=== PATIENT | female | born 1990 | race Hispanic/Latino ===

== ENCOUNTER 2017-08-22 09:44 | Emergency (ER) | payer SELFPAY ==
[2017-08-22 10:15] LABS: #Eosinphils 0.1 thou/uL (0.0-0.7); #Lymphocytes 2.4 thou/uL (1.20-3.40); #Monocytes 0.8 thou/uL (0.11-0.59); #Neutrophils 7.6 thou/uL (1.40-6.50); %Basophils 0.4 % (0.0-1.0); %Eosinophils 0.8 % (0.0-10.0); %Neutrophils 69.7 % (42.0-75.0); Hemoglobin 15.2 g/dL (12.0-16.0); Mean Corpuscular HGB CONC 33.5 g/dL (32.0-36.0); Mean Corpuscular Hemoglobin 34.5 pg (27.0-31.0); Mean Platelet Volume 6.6 fL (7.4-10.4); Platelet Count 313 thou/uL (130-400); RBC Distribution Width 11.3 % (11.5-14.5); Red Blood Cell (RBC) Count 4.41 mill/uL (4.20-5.40); White Blood Cell (WBC) Count 10.9 thou/uL (4.8-10.8)
[2017-08-22 10:25] LABS: Bilirubin Negative (Negative); Blood, Urine Negative (Negative); Glucose, Urine (Dipstick) Negative (Negative); Leukocyte Negative (Negative); Nitrite Negative (Negative); Protein, Urine (Dipstick) Negative (Neg-Trace); Specific Gravity, Urine 1.025 (1.005-1.030); Urobilinogen 0.2 mg/dL (0.2-1.0)
[2017-08-22 10:26] LABS: Clarity CLEAR (Clear); Pregnancy Test - Urine (BHCG) Negative (Negative)
[2017-08-22 10:27] LABS: Pregu Control Background? CLEAR/WHITE (CLR/WHITE); Pregu Control Bar Appear? YES (CONTROL BAR); Specific Gravity 1.025 (1.002-1.036)
[2017-08-22] MEDS ORDERED: Ketorolac Tromethamine 30 MG/ML VIAL ONE (10:30)
[2017-08-22] MEDS ORDERED: Ondansetron HCl/PF 4 MG/2 ML Vial ONE (10:30)
[2017-08-22 11:05] LABS: ALT (SGPT) 15 U/L (8-55); AST (SGOT) 19 U/L (5-34); Albumin 4.6 g/dL (3.5-5.0); Alkaline Phosphatase 52 U/L (40-150); Anion Gap 17 mmol/L (10-20); BUN (Urea Nitrogen) 9 mg/dL (7.0-18.7); Calc. Creatinine Clearance 0 mL/min (70-130); Calcium 9.8 mg/dL (7.8-10.44); Carbon Dioxide 19 mmol/L (22-29); Chloride 106 mmol/L (98-107); Estimated GFR-MDRD Greater than 90; Glucose 75 mg/dL (70-105); Potassium 3.6 mmol/L (3.5-5.1); Protein, Total 7.6 g/dL (6.0-8.3); Sodium 138 mmol/L (136-145)
--- NOTE | 2017-08-22 11:31 | ULT ---
RIGHT UPPER QUADRANT ULTRASOUND: History: Right upper quadrant pain. FINDINGS: Multiple shadowing mobile stones are present within the gallbladder lumen. There is no gallbladder wa ll thickening or pericholecystic fluid. Common duct is 0.3 cm in diameter. Liver is unremarkable with out focal mass or intrahepatic biliary dilatation. No free fluid is apparent. IMPRESSION: Cholelithiasis. No evidence of acute biliary obstruction. POS: [facility]
[2017-08-22] MEDS ORDERED: Acetaminophen/Codeine 30-300mg Tablet ONE (11:43)
== END 2017-08-22 11:54 | disposition home or self-care (01) ==
LOC: ERS 09:44
DX: K80.20 Calculus of gallbladder without cholecystitis without obstruction (principal); F17.210 Nicotine dependence, cigarettes, uncomplicated
CPT/HCPCS: 36415; 76705; 80053; 81003; 81025; 85025; 96361; 96374; 96375; J1885; J2405

== ENCOUNTER 2017-08-26 17:02 | Emergency (ER) | payer SELFPAY ==
[2017-08-26 17:33] LABS: #Basophils 0.1 thou/uL (0.0-0.2); #Eosinphils 0.1 thou/uL (0.0-0.7); #Lymphocytes 2.2 thou/uL (1.20-3.40); #Monocytes 0.7 thou/uL (0.11-0.59); #Neutrophils 5.1 thou/uL (1.40-6.50); %Basophils 0.7 % (0.0-1.0); %Eosinophils 1.6 % (0.0-10.0); %Lymphocytes 26.9 % (21.0-51.0); %Monocytes 8.8 % (0.0-10.0); %Neutrophils 62.1 % (42.0-75.0); Hemoglobin 15.2 g/dL (12.0-16.0); Mean Corpuscular Hemoglobin 34.4 pg (27.0-31.0); Mean Platelet Volume 6.5 fL (7.4-10.4); Platelet Count 319 thou/uL (130-400); RBC Distribution Width 11.3 % (11.5-14.5); Red Blood Cell (RBC) Count 4.43 mill/uL (4.20-5.40); White Blood Cell (WBC) Count 8.3 thou/uL (4.8-10.8)
[2017-08-26 17:54] LABS: ALT (SGPT) 16 U/L (8-55); AST (SGOT) 16 U/L (5-34); Albumin 4.7 g/dL (3.5-5.0); Alkaline Phosphatase 48 U/L (40-150); Anion Gap 12 mmol/L (10-20); BUN (Urea Nitrogen) 8 mg/dL (7.0-18.7); Bilirubin, Total 1.1 mg/dL (0.2-1.2); Calc. Creatinine Clearance 0 mL/min (70-130); Calcium 9.7 mg/dL (7.8-10.44); Carbon Dioxide 23 mmol/L (22-29); Chloride 105 mmol/L (98-107); Estimated GFR-MDRD 78; Glucose 93 mg/dL (70-105); Potassium 3.9 mmol/L (3.5-5.1); Protein, Total 7.7 g/dL (6.0-8.3); Sodium 136 mmol/L (136-145)
[2017-08-26 19:01] LABS: Bilirubin Negative (Negative); Blood, Urine Negative (Negative); Clarity CLEAR (Clear); Glucose, Urine (Dipstick) Negative (Negative); Leukocyte Negative (Negative); Nitrite Negative (Negative); Protein, Urine (Dipstick) Negative (Neg-Trace); Specific Gravity, Urine 1.029 (1.002-1.036); pH, Urine 6.5 (5.0-9.0)
[2017-08-26 19:04] LABS: Pregnancy Test - Urine (BHCG) Negative (Negative)
[2017-08-26 19:05] LABS: Pregu Control Background? CLEAR/WHITE (CLR/WHITE); Pregu Control Bar Appear? YES (CONTROL BAR); Specific Gravity 1.029 (1.002-1.036)
[2017-08-26] MEDS ORDERED: Morphine 4 MG/ML Carpuject ONE (20:26)
[2017-08-26] MEDS ORDERED: Ondansetron HCl/PF 4 MG/2 ML Vial ONE (20:26)
== END 2017-08-26 20:55 | disposition home or self-care (01) ==
LOC: ERS 17:02
DX: R10.11 Right upper quadrant pain (principal); F17.210 Nicotine dependence, cigarettes, uncomplicated
CPT/HCPCS: 36415; 80053; 81003; 81025; 83690; 85025; 96374; 96375; 99406; J2270; J2405

== ENCOUNTER 2017-11-25 10:04 | Outpatient (CLI) | payer OTHER ==
[2017-11-25 11:03] LABS: #Basophils 0.1 thou/uL (0.0-0.2); #Eosinphils 0.1 thou/uL (0.0-0.7); #Lymphocytes 2.3 thou/uL (1.20-3.40); #Monocytes 0.7 thou/uL (0.11-0.59); #Neutrophils 6.7 thou/uL (1.40-6.50); %Basophils 0.8 % (0.0-1.0); %Eosinophils 0.9 % (0.0-10.0); %Lymphocytes 23.4 % (21.0-51.0); %Monocytes 6.9 % (0.0-10.0); Mean Corpuscular HGB CONC 33.5 g/dL (32.0-36.0); Mean Corpuscular Hemoglobin 34.5 pg (27.0-31.0); Mean Platelet Volume 6.7 fL (7.4-10.4); Platelet Count 359 thou/uL (130-400); RBC Distribution Width 11.3 % (11.5-14.5); Red Blood Cell (RBC) Count 4.34 mill/uL (4.20-5.40); White Blood Cell (WBC) Count 9.8 thou/uL (4.8-10.8)
[2017-11-25 11:23] LABS: BHCG - Serum Negative (NEGATIVE); Pregs Control Background? CLEAR/WHITE (CLR/WHITE); Pregs Control Bar Appear? YES (CONTROL BAR)
[2017-11-25 11:24] LABS: ALT (SGPT) 14 U/L (8-55); AST (SGOT) 15 U/L (5-34); Albumin 4.8 g/dL (3.5-5.0); Alkaline Phosphatase 54 U/L (40-150); Anion Gap 12 mmol/L (10-20); BUN (Urea Nitrogen) 6 mg/dL (7.0-18.7); Bilirubin, Total 1.3 mg/dL (0.2-1.2); Calc. Creatinine Clearance 0 mL/min (70-130); Carbon Dioxide 28 mmol/L (22-29); Chloride 104 mmol/L (98-107); Estimated GFR-MDRD 90; Globulin 2.8 g/dL (2.4-3.5); Glucose 90 mg/dL (70-105); Potassium 4.5 mmol/L (3.5-5.1); Protein, Total 7.6 g/dL (6.0-8.3); Sodium 139 mmol/L (136-145)
== END 2017-11-25 10:05 | disposition home or self-care (01) ==
LOC: LABBT 10:04
PROVIDERS: ATTEND Specialist
DX: Z01.812 Encounter for preprocedural laboratory examination (principal); K80.20 Calculus of gallbladder without cholecystitis without obstruction
CPT/HCPCS: 80053; 84703; 85025

== ENCOUNTER 2017-11-28 09:31 | Day surgery (SDC) | payer OTHER ==
[2017-11-25 10:54] VITALS: BMI 28.1
--- NOTE | 2017-11-25 15:19 | ADD-HP ---
DATE OF SERVICE: 10/09/2017 Isadora Oro presented 10/09/2017, dictation #[id number], for laparoscopic cholecystectomy. She has acqu ired financial ability to proceed with laparoscopic cholecystectomy. Preoperative laboratories will be obtained. The patient understands the risks and benefits of procedure and consents. We will plan this as an outpatient. PHYSICAL EXAMINATION: LUNGS: Clear to auscultation. CARDIAC: Regular rate and rhythm without murmur, rub, or gallop. ABDOMEN: Soft, nontender. EXTREMITIES: Unremarkable. ASSESSMENT: Symptomatic cholelithiasis. Please see prior history and physical for past history. PLAN: Laparoscopic cholecystectomy. Cass has been called into her pharmacy. Scopolamine patch wi ll be placed the night before.
--- NOTE | 2017-11-25 15:22 | HP ---
HISTORY OF PRESENT ILLNESS: A 27-year-old female presents with symptomatic cholelithiasis. She was referred by JUAN. She is having intermittent pain, epigastric pain continuous. Ultrasound in [facility] on 09/12/2017 reveals gallstones, normal bile duct caliber. I do not have c opies of any labs. ALLERGIES: None. TOBACCO: 1/2 pack per day. ALCOHOL: Occasionally. PAST MEDICAL HISTORY: Noncontributory. PAST SURGICAL HISTORY: Noncontributory. 0, para 0. REVIEW OF SYSTEMS: Ten-point noncontributory. PHYSICAL EXAMINATION: VITAL SIGNS: 145 pounds, 60 inches, 114/66, 80, 97.5 degrees. HEAD, EYES, EARS, NOSE, AND THROAT: Unremarkable. LUNGS: Clear to auscultation. CARDIAC: Regular rate and rhythm without murmur or gallop. ABDOMEN: Soft. Tenderness in the epigastrium with guarding with epigastric and right upper quadrant . EXTREMITIES: Unremarkable. SKIN: Nonjaundiced. Sclerae are nonicteric. Neurologically intact. No lymphadenopathy in neck, gr oins, axilla. ASSESSMENT AND PLAN: Acute on chronic cholecystitis and cholelithiasis. Recommend laparoscopic vide o cholecystectomy. Risk of infection, bleeding, visceral injury explained; she consents.
[2017-11-28] MEDS ORDERED: Ketorolac Tromethamine 30 MG/ML VIAL ONE (09:59)
[2017-11-28] MEDS ORDERED: Levofloxacin 500 mg/D5W 100 ml Premix Bag ONE (09:59)
[2017-11-28] MEDS ORDERED: Midazolam HCl 2 mg/2 ml Vial ONE ×2 (10:18→12:14)
[2017-11-28] MEDS ORDERED: Bupivacaine HCl 0.5%/Epinephrine 1:200,000/PF 30 ml Vial ONE (12:07)
[2017-11-28] MEDS ORDERED: Fentanyl 100 MCG/2 ML VIAL ONE ×2 (12:14→13:53)
[2017-11-28] MEDS ORDERED: Morphine 4 MG/ML VIAL ONE (13:21)
--- NOTE | 2017-11-28 13:33 | OP ---
PREOPERATIVE DIAGNOSES: Chronic cholecystitis, cholelithiasis. POSTOPERATIVE DIAGNOSES: Chronic cholecystitis, cholelithiasis. PROCEDURE: Laparoscopic video cholecystectomy. SURGEON: Olivier Thompson M.D. ANESTHESIA: General. Local 0.5% Marcaine with epinephrine 30 mL. DESCRIPTION OF PROCEDURE: The patient was taken to the operating room under general anesthesia. Abd omen was prepped with ChloraPrep, draped in routine fashion. Local anesthetic 0.5% Marcaine with epi nephrine infiltrated into the skin and subcutaneous tissue about each port site. Total volume used. Infraumbilical incision made. Pneumoperitoneum to 15 mmHg obtained with the Veress needle, replacin g it with a 5-port and laparoscope inserted. Remainder of the ports placed under laparoscopic visual ization. Right subxiphoid incision made and 11-port placed. Right subcostal incision made, midclavi cular anterior axillary lines and 5 ports placed. Liver appeared to be normal. Fundus grasped and r eflected cephalad. Infundibulum was grasped and reflected laterally. Cystic artery and duct dissect ed free for critical view, and cystic artery and duct doubly clipped proximally, divided, and gallbla dder dissected free from liver bed using cautery to obtain good hemostasis prior to division of final peritoneal attachments of the gallbladder. Irrigant and pneumoperitoneum evacuated. All instrument s removed and all skin incisions approximated with interrupted subdermal 4-0 Monocryl and DermaGlue a pplied.
[2017-11-28] MEDS ORDERED: PROPOFOL 200 MG/20 ML VIAL ONE (16:04)
[2017-11-28] MEDS ORDERED: Dexamethasone 20 MG/5 ML VIAL ONE (16:04)
[2017-11-28] MEDS ORDERED: Glycopyrrolate 0.2 MG/ML 5 ML SYRINGE ONE (16:04)
== END 2017-11-28 15:15 | disposition home or self-care (01) ==
LOC: SDC 09:31
PROVIDERS: ATTEND Specialist
PROC: 0FT44ZZ Resection of Gallbladder, Percutaneous Endoscopic Approach (ICD-10-PCS; principal; 2017-11-28)
DX: K80.10 Calculus of gallbladder with chronic cholecystitis without obstruction (principal)
CPT/HCPCS: 88304; J0131; J0670; J1100; J1885; J1956; J2250; J2270; J2704; J3010

== ENCOUNTER 2018-01-04 16:43 | Emergency (ER) | payer OTHER, SELFPAY ==
[2018-01-04 17:06] LABS: #Basophils 0.1 thou/uL (0.0-0.2); #Eosinphils 0.1 thou/uL (0.0-0.7); #Lymphocytes 2.8 thou/uL (1.20-3.40); #Monocytes 0.7 thou/uL (0.11-0.59); #Neutrophils 7.5 thou/uL (1.40-6.50); %Basophils 0.5 % (0.0-1.0); %Eosinophils 1.2 % (0.0-10.0); %Lymphocytes 25.3 % (21.0-51.0); %Neutrophils 67.1 % (42.0-75.0); Hemoglobin 14.6 g/dL (12.0-16.0); Mean Corpuscular HGB CONC 34.4 g/dL (32.0-36.0); Mean Corpuscular Hemoglobin 34.5 pg (27.0-31.0); Mean Platelet Volume 6.3 fL (7.4-10.4); Platelet Count 275 thou/uL (130-400); RBC Distribution Width 11.8 % (11.5-14.5); Red Blood Cell (RBC) Count 4.24 mill/uL (4.20-5.40); White Blood Cell (WBC) Count 11.2 thou/uL (4.8-10.8)
[2018-01-04 17:13] LABS: Bilirubin Small (Negative); Blood, Urine Small (Negative); Clarity CLOUDY (Clear); Glucose, Urine (Dipstick) Negative (Negative); Leukocyte Moderate (Negative); Nitrite Negative (Negative); Protein, Urine (Dipstick) Trace mg/dL (Neg-Trace); Specific Gravity, Urine 1.029 (1.002-1.036); Urobilinogen 0.2 mg/dL (0.2-1.0); pH, Urine 5.5 (5.0-9.0)
[2018-01-04 17:14] LABS: Bacteria/HPF Rare-Few HPF (None Seen); Pathc Cast-AUWi Flag 1.59 (0-2.49); Squamous Epithelial 0-3 HPF (0-3); WBC/HPF 21-50 HPF (0-3)
[2018-01-04 17:24] LABS: Crystals/HPF 1+ CA OXALATE HPF (Negative); Hyaline Casts/LPF 0-3 HYALINE CAST LPF (0-3 Hyaline)
[2018-01-04 17:28] LABS: ALT (SGPT) 13 U/L (8-55); AST (SGOT) 17 U/L (5-34); Albumin 4.5 g/dL (3.5-5.0); Alkaline Phosphatase 47 U/L (40-150); Anion Gap 11 mmol/L (10-20); BUN (Urea Nitrogen) 6 mg/dL (7.0-18.7); Bilirubin, Total 1.7 mg/dL (0.2-1.2); Calc. Creatinine Clearance 0 mL/min (70-130); Calcium 9.8 mg/dL (7.8-10.44); Carbon Dioxide 23 mmol/L (22-29); Chloride 106 mmol/L (98-107); Estimated GFR-MDRD 85; Globulin 2.8 g/dL (2.4-3.5); Glucose 98 mg/dL (70-105); Potassium 3.6 mmol/L (3.5-5.1); Protein, Total 7.3 g/dL (6.0-8.3); Sodium 136 mmol/L (136-145)
== END 2018-01-04 18:32 | disposition home or self-care (01) ==
LOC: ERS 16:43
DX: N30.90 Cystitis, unspecified without hematuria (principal); F17.210 Nicotine dependence, cigarettes, uncomplicated
CPT/HCPCS: 36415; 80053; 81003; 81015; 85025; 99284

== ENCOUNTER 2018-01-06 08:30 | Emergency (ER) | payer OTHER, SELFPAY ==
[2018-01-06 09:01] LABS: #Eosinphils 0.1 thou/uL (0.0-0.7); #Monocytes 0.5 thou/uL (0.11-0.59); #Neutrophils 3.8 thou/uL (1.40-6.50); %Basophils 0.3 % (0.0-1.0); %Eosinophils 1.6 % (0.0-10.0); %Lymphocytes 30.6 % (21.0-51.0); %Monocytes 8.3 % (0.0-10.0); %Neutrophils 59.2 % (42.0-75.0); Hemoglobin 14.8 g/dL (12.0-16.0); Mean Corpuscular HGB CONC 34.1 g/dL (32.0-36.0); Mean Corpuscular Hemoglobin 34.5 pg (27.0-31.0); Mean Platelet Volume 6.4 fL (7.4-10.4); Platelet Count 275 thou/uL (130-400); RBC Distribution Width 11.7 % (11.5-14.5); Red Blood Cell (RBC) Count 4.28 mill/uL (4.20-5.40); White Blood Cell (WBC) Count 6.4 thou/uL (4.8-10.8)
[2018-01-06 09:08] LABS: Clarity CLEAR (Clear)
[2018-01-06 09:11] LABS: Hyaline Casts/LPF 0-3 HYALINE CAST LPF (0-3 Hyaline); Pathc Cast-AUWi Flag 0.29 (0-2.49); Squamous Epithelial 0-3 HPF (0-3)
[2018-01-06 09:21] LABS: Specific Gravity, Urine 1.004 (1.002-1.036)
[2018-01-06 09:22] LABS: Leukocyte Negative (Negative); Nitrite Unable to Interpret (Negative); pH, Urine 6.1 (5.0-9.0)
[2018-01-06 09:23] LABS: Blood, Urine Trace (Negative)
[2018-01-06 09:24] LABS: Bilirubin Unable to Interpret (Negative); Urobilinogen UNABLE TO INTERPRET mg/dL (0.2-1.0)
[2018-01-06 09:25] LABS: Protein, Urine (Dipstick) Unable to Interpret mg/dL (Neg-Trace)
[2018-01-06 09:29] LABS: Pregnancy Test - Urine (BHCG) Negative (Negative); Pregu Control Bar Appear? YES (CONTROL BAR); Specific Gravity 1.004 (1.002-1.036)
[2018-01-06 09:29] LABS: ALT (SGPT) 16 U/L (8-55); AST (SGOT) 17 U/L (5-34); Albumin 4.7 g/dL (3.5-5.0); Alkaline Phosphatase 49 U/L (40-150); Anion Gap 11 mmol/L (10-20); BUN (Urea Nitrogen) 6 mg/dL (7.0-18.7); Bilirubin, Total 1.1 mg/dL (0.2-1.2); Calc. Creatinine Clearance 0 mL/min (70-130); Calcium 9.7 mg/dL (7.8-10.44); Carbon Dioxide 24 mmol/L (22-29); Chloride 105 mmol/L (98-107); Estimated GFR-MDRD 89; Glucose 94 mg/dL (70-105); Potassium 3.7 mmol/L (3.5-5.1); Protein, Total 7.7 g/dL (6.0-8.3); Sodium 136 mmol/L (136-145)
[2018-01-06 09:33] LABS: Pregu Control Background? CLEAR/WHITE (CLR/WHITE)
[2018-01-06] MEDS ORDERED: Mag-Al 1200 mg/1200 mg/30 ML UDCUP ONE (09:46)
[2018-01-06] MEDS ORDERED: Lidocaine Viscous Sol 2% 15 ml UD Cup ONE (09:47)
[2018-01-06 09:49] LABS: Glucose, Urine (Dipstick) Negative (Negative); Renal Epithelial 0-3 HPF (0-3)
[2018-01-06 09:50] LABS: Bacteria/HPF Rare-Few HPF (None Seen); RBC/HPF 0-3 HPF (0-3); Yeast-All Forms None Seen HPF (None Seen)
[2018-01-06 09:51] LABS: WBC/HPF 0-3 HPF (0-3)
[2018-01-06 10:30] LABS: Crystals/HPF 1+ SODIUM URATE HPF (Negative)
== END 2018-01-06 10:20 | disposition home or self-care (01) ==
LOC: ERS 08:30
DX: R10.13 Epigastric pain (principal); R11.2 Nausea with vomiting, unspecified; N39.0 Urinary tract infection, site not specified; F17.210 Nicotine dependence, cigarettes, uncomplicated; K80.80 Other cholelithiasis without obstruction
CPT/HCPCS: 36415; 80053; 81003; 81015; 81025; 83690; 85025; 99284

== ENCOUNTER 2018-08-31 14:09 | Outpatient (CLI) | payer OTHER ==
--- NOTE | 2018-08-31 17:28 | ULT ---
ULTRASOUND OBSTETRICAL COMPLETE: DATE: 08-31-18 HISTORY: Z34.82, encounter for supervision of other normal , 2nd trimester, in 27-year-old female. FINDINGS: number: Luong lie: Vertex Maternal cervix: Poorly visualized Placenta: Posterior. No previa. Tip of placenta is 3.5 cm from the expected location of the internal cervical os. Amniotic fluid volume: LINSEY: 9 cm heart rate: 147 bpm The following anatomy is visualized, with no evidence of anomalies: Head, cerebellum, cisterna magna, lateral ventricles, four chamber heart, stomach, kidneys, bladder, spine, upper extremities, lower extremities, and three vessel cord. The cord insertion, and the nose and lips, are not well visualized. biometry: Head circumference (HC): 16.9 cm 19 w 4 d Biparietal diameter (BPD): 4.4 cm 19 w 2 d Abdominal circumference (AC): 14.3 cm 19 w 4 d Femur length (FL): 2.1 cm 19 w 4 d Average ultrasound age (AUA): 19 w 4 d Estimated date of delivery (BRADLEY): 01/21/2019 Last menstrual period (LMP): 04/13/2018 Gestational age by LMP: 20 w 0 d Estimated weight (EFW): 299 g +/- 44g (0 lb. 11 oz, +/- 2 oz) IMPRESSION: 1. Live 2nd trimester intrauterine gestation. 2. Estimated gestational age of 19 weeks, 4 days. 3. Cephalic lie. 4. Borderline oligohydramnios. DEVIN Guzman POS: [facility]
== END 2018-08-31 14:10 | disposition home or self-care (01) ==
LOC: ULT 14:09
PROVIDERS: ATTEND Nurse Practitioner
DX: Z34.82 Encounter for supervision of other normal pregnancy, second trimester (principal); Z3A.19 19 weeks gestation of pregnancy; O41.02X0 Oligohydramnios, second trimester, not applicable or unspecified
CPT/HCPCS: 76805

== ENCOUNTER 2018-11-11 13:45 | Outpatient (CLI) | payer OTHER ==
--- NOTE | 2018-11-11 14:51 | ULT ---
EXAM: US OB Complete STANDARD PROVIDED CLINICAL HISTORY: Intrauterine gestation. Evaluate growth and amniotic fluid index. COMPARISON: 08/31/2018. FINDINGS: There is a single intrauterine gestation in cephalic presentation. Cardiac Doppler demonstrates heart tones with a heart rate of 144 bpm. The placenta is located posteriorly without evidence of placenta previa. There is a normal amount of amniotic fluid with an amniotic fluid index measurin g 10.48 cm. The cervix is mostly obscured due to shadowing from the head. biometry measurements: Biparietal diameter: 7.69 cm, 30 weeks 6 days Head circumference: 27.96 cm, 30 weeks 5 days Abdominal circumference 25.75 cm, 30 weeks Femur length 5.56 cm, 29 weeks 2 days The estimated gestational age by ultrasound is 30 weeks and 2 days with an BRADLEY on 01/18/2019. Gestatio nal age by the last menstrual period is 30 weeks and 2 days. The estimated weight by ultrasound is 1465 g (3 pounds, 4 ounces). This represents 24th percentile for weight. The anatomical structures were not completely evaluated on this examination. There is suggestio n of a 4 chambered heart. The stomach has a normal appearance. A three-vessel cord is visualized. The remainder of the anatomical structures are not well imaged on this exam. However, no definite anomalies are appreciated on provided images. IMPRESSION: 1. Single intrauterine gestation in cephalic presentation with heart tones documented. The maribell mated gestational age by ultrasound is 30 weeks and 2 days with BRADLEY on 01/18/2019. 2. Estimated weight is 1465 g (3 pounds, 4 ounces). 3. Amniotic fluid index measures 10.48 cm.
== END 2018-11-11 13:46 | disposition home or self-care (01) ==
LOC: BICULT 13:45
PROVIDERS: ATTEND Obstetrics & Gynecology
DX: Z34.83 Encounter for supervision of other normal pregnancy, third trimester (principal); Z3A.30 30 weeks gestation of pregnancy
CPT/HCPCS: 76805

== ENCOUNTER 2018-12-13 21:26 | Observation (INO) | payer OTHER ==
[2018-12-13] MEDS ORDERED: Morphine 4 MG/ML VIAL ONE (21:45)
[2018-12-13 21:53] VITALS: BMI 33.4
[2018-12-13] MEDS ORDERED: Lactated Ringer's 1,000 ML IV SCH (22:00)
[2018-12-13] MEDS ORDERED: Butorphanol Tartrate 1 MG/ML VIAL ONE (22:08)
--- NOTE | 2018-12-13 22:26 | PDOC.LDHP ---
Labor and Delivery H&P Chief complaint: abdominal pain HPI: 28 y/o at 34w3d, patient of Dr. Yasmeen Escobar, presents with right sided flank/abdominal pain. Pain started abruptly and is severe. Denies N/V, changes in bowel habits. Denies VB, LOF, or decreased FM. ROS neg for HEENT, CV, pulm, GI, , neuro, psych, skin, musculoskeletal, or constitutional symptoms other than mentioned above. OB History Details: 2 prior term SVDs Current complications: none Current medications: pre- vitamins Previous surgical history: cholecystectomy Allergies/Adverse Reactions: Allergies Allergy/AdvReac Type Severity Reaction Status Date / Time No Known Allergies Allergy Verified 12/13/18 21:50 Social history: none - Physical Exam Vital signs reviewed and normal: yes General: other (Appears uncomfortable) Lungs: nonlabored breathing Abdomen: gravid Extremeties: no edema FHT: category 1 (140s, mod variability, + accels, no decels) [place] contractions every: none - Vaginal Exam cm dilated: 1 Effacement: 0% Station: -3 - OB Labs Blood type: A RH: positive - Assessment 28 y/o at 34w3d with clinical picture consistent with kidney stone. US pending. status reassuring with reactive NST. - Plan Plan: observation in L&D -: Given Morphine 4mg IM with no improvement. IV started and labs pending. Will place on obs for pain control overnight. Dr. Moreno notified.
[2018-12-13 22:31] LABS: #Eosinphils 0.2 thou/uL (0.0-0.7); #Lymphocytes 2.3 thou/uL (1.20-3.40); #Monocytes 0.8 thou/uL (0.11-0.59); #Neutrophils 8.1 thou/uL (1.40-6.50); %Basophils 0.2 % (0.0-1.0); %Eosinophils 1.5 % (0.0-10.0); %Monocytes 7.2 % (0.0-10.0); %Neutrophils 71.1 % (42.0-75.0); Hemoglobin 10.8 g/dL (12.0-16.0); Mean Corpuscular HGB CONC 32.8 g/dL (32.0-36.0); Mean Corpuscular Hemoglobin 30.1 pg (27.0-31.0); Mean Corpuscular Volume 91.8 fL (78.0-98.0); Mean Platelet Volume 6.5 fL (7.4-10.4); Platelet Count 341 thou/uL (130-400); RBC Distribution Width 12.1 % (11.5-14.5); Red Blood Cell (RBC) Count 3.59 mill/uL (4.20-5.40); White Blood Cell (WBC) Count 11.5 thou/uL (4.8-10.8)
[2018-12-13 22:32] LABS: Bilirubin Negative (Negative); Blood, Urine Small (Negative); Clarity CLOUDY (Clear); Glucose, Urine (Dipstick) Negative (Negative); Leukocyte Negative (Negative); Nitrite Negative (Negative); Protein, Urine (Dipstick) Negative (Neg-Trace); Urobilinogen 0.2 mg/dL (0.2-1.0)
[2018-12-13] MEDS: Morphine 4 MG/ML VIAL IM PRN (22:32)
[2018-12-13 22:35] LABS: Bacteria/HPF None Seen HPF (None Seen); Hyaline Casts/LPF 4-6 HYALINE CAST LPF (0-3 Hyaline); Pathc Cast-AUWi Flag 1.08 (0-2.49); Squamous Epithelial 0-3 HPF (0-3); WBC/HPF None Seen HPF (0-3)
[2018-12-13 22:37] LABS: Urine Culture Reflex No No
[2018-12-13] MEDS ORDERED: Acetaminophen 500 MG TAB PO PRN (22:41)
[2018-12-13] MEDS ORDERED: Ondansetron PF 4 MG/2 ML Vial IVP PRN (22:41)
[2018-12-13] MEDS ORDERED: Promethazine HCl 25 MG/ML VIAL IM PRN (22:41)
[2018-12-13 22:56] LABS: ALT (SGPT) 8 U/L (8-55); AST (SGOT) 12 U/L (5-34); Albumin 3.4 g/dL (3.5-5.0); Alkaline Phosphatase 109 U/L (40-150); Anion Gap 13 mmol/L (10-20); BUN (Urea Nitrogen) 4 mg/dL (7.0-18.7); Bilirubin, Total 0.6 mg/dL (0.2-1.2); Calc. Creatinine Clearance 165 mL/min (70-130); Calcium 9.1 mg/dL (7.8-10.44); Carbon Dioxide 23 mmol/L (22-29); Chloride 104 mmol/L (98-107); Estimated GFR-MDRD Greater than 90; Globulin 3.2 g/dL (2.4-3.5); Glucose 95 mg/dL (70-105); Potassium 3.7 mmol/L (3.5-5.1); Protein, Total 6.6 g/dL (6.0-8.3); Sodium 136 mmol/L (136-145)
[2018-12-13] MEDS: Butorphanol Tartrate 1 MG/ML VIAL SLOW IVP PRN (23:53)
--- NOTE | 2018-12-13 23:57 | ULT ---
Exam: Bilateral renal ultrasound HISTORY: Right-sided pain. COMPARISON: None FINDINGS: Right kidney: Normal cortical echotexture. No hydronephrosis. Right kidney measurements: 4.9 x 4.8 x 11.4 cm Left kidney: Normal cortical echotexture. No hydronephrosis Left kidney measurements 5.9 x 11.7 x 5.4 cm Urinary bladder: Questionable sediment in the dependent portion. Bilateral ureteral jets are apprecia timothy. IMPRESSION: 1. No hydronephrosis 2. Bilateral ureteral jets are appreciated 3. Possible sediment in the dependent portion of the urinary bladder. Correlate with urinalysis.
[2018-12-14] MEDS: Butorphanol Tartrate 1 MG/ML VIAL SLOW IVP PRN ×3 (02:55→07:47)
[2018-12-14] MEDS: Lactated Ringer's 1,000 ML IV SCH ×2 (02:55→08:23)
[2018-12-14] MEDS: Morphine 4 MG/ML VIAL IM PRN (05:15)
[2018-12-14] MEDS ORDERED: Butorphanol Tartrate 1 MG/ML VIAL ONE (07:43)
[2018-12-14] MEDS ORDERED: Tamsulosin HCl 0.4 MG CAP PO SCH (09:00)
[2018-12-14] MEDS ORDERED: Acetaminophen 1,000 MG in Premix Bag 1 BAG IVPB SCH (09:15)
[2018-12-14] MEDS ORDERED: Butorphanol Tartrate 1 MG/ML VIAL SLOW IVP SCH (09:30)
[2018-12-14 10:43] VITALS: BP 112/69; TEMP 99.1
== END 2018-12-14 14:09 | disposition home health service (06) ==
LOC: L&D/OP 21:26 → L&D 22:47
PROVIDERS: ADMIT Obstetrics & Gynecology; ATTEND Obstetrics & Gynecology
DX: O99.89 Other specified diseases and conditions complicating pregnancy, childbirth and the puerperium (principal); R10.9 Unspecified abdominal pain; O99.013 Anemia complicating pregnancy, third trimester; Z3A.34 34 weeks gestation of pregnancy
CPT/HCPCS: 36415; 76770; 80053; 81001; 85025; 96361; 96374; 96375; 96376; 99285; G0378; J0131; J0595; J2270; J2550

== ENCOUNTER 2019-01-02 00:26 | Day surgery (SDC) | payer OTHER ==
[2019-01-02 00:52] VITALS: BP 134/61; TEMP 97.4; BMI 34.7
--- NOTE | 2019-01-02 03:53 | PDOC.LDHP ---
Labor and Delivery H&P Allergies/Adverse Reactions: Allergies Allergy/AdvReac Type Severity Reaction Status Date / Time No Known Allergies Allergy Verified 01/02/19 00:46 - Plan -: PCP: Clement Escobar HPI: This is a 28 yo at 37.2 wks by LMP/1TUS presenting for contractions. She states they have been going on for about a day but got worse this afternoon. She states she is feeling them about every 5 mintues. She denies headache, chest pain, or shortness of breath. She affirms movement, denies bleeding/discharge. Denies BOCANEGRA, visual changes, SOB, or swelling. REVIEW OF SYSTEMS: Gen: no fever, chills, or sweats Neuro: no numbness/tingling, no weakness, denies headache Eyes: no visual changes ENT: no hearing changes, no sore throat, no runny nose Resp: no cough, no SOB, no wheeze Card: denies chest pain, no palpitations GI: no N/V/D, no abdominal pain : no dysuria, no hematuria MSK: no myalgias, no joint pain/stiffness Heme: no easy bruising/bleeding Skin: no rash, no erythema PHYSICAL EXAMINATION: General: NAD, alert and oriented x3 HEENT: PERRLA, EOMI, normal sclera, oropharynx without erythema or exudate Neck: Supple. Full ROM. Heart/Cardiovascular System: RRR, Cap refill < 3 seconds, no rub, no murmur Lungs/Respiratory System: clear to auscultation bilaterally. No increased work of breathing. Room air. Abdomen/Gastro-Intestinal System: no abdominal tenderness, normal bowel sounds, Gravid Extremities: Warm extremities. No cyanosis or edema. Neuro: No gross deficits appreciated. CN 2-12 grossly intact Psychiatry: Awake, Alert and cooperative with exam Skin: No lesions, rashes, or ulcers Musculoskeletal: Full ROM A/P: This is a 28 yo at 32.4 wks presenting for labor r/o # Term not in labor - No change after 2 hour labor re-check, /-3 - Labor Precautions discussed at length - Follow up in clinic with Dr. Escobar Addendum - Attending - Attending Attestation Date/Time: 01/04/19 0643 I personally evaluated the patient and discussed the management with Dr. Hi I agree with the History, Examination, Assessment and Plan documented above with any addition or exceptions noted below. vital signs: 134/61 92 20 97.4 heart tracing: baseline 130s with mod ltv, +15x15 acels, no decels-- reactive nst toco: irritability with out regular contractions. no evidence of labor. PT discharged home.
== END 2019-01-02 03:03 | disposition home or self-care (01) ==
LOC: L&D/OP 00:26
PROVIDERS: ATTEND Obstetrics & Gynecology
DX: O47.1 False labor at or after 37 completed weeks of gestation (principal); Z3A.37 37 weeks gestation of pregnancy
CPT/HCPCS: 99283

== ENCOUNTER 2019-01-15 01:47 | Inpatient (IN) | payer OTHER ==
[2019-01-15 02:18] VITALS: BMI 34.3
[2019-01-15] MEDS ORDERED: Fentanyl 4 mcg/Bup 0.1% Cadd 100 ML ONE (02:21)
[2019-01-15] MEDS ORDERED: Lidocaine 1.5%/Epinephrine 1:200,000 5 ML AMPUL IJ ONE (02:22)
[2019-01-15 02:39] LABS: Hemoglobin 11.3 g/dL (12.0-16.0); Mean Corpuscular HGB CONC 34.2 g/dL (32.0-36.0); Mean Corpuscular Hemoglobin 30.6 pg (27.0-31.0); Mean Corpuscular Volume 89.4 fL (78.0-98.0); Mean Platelet Volume 6.5 fL (7.4-10.4); Platelet Count 354 thou/uL (130-400); RBC Distribution Width 13.3 % (11.5-14.5); Red Blood Cell (RBC) Count 3.71 mill/uL (4.20-5.40); White Blood Cell (WBC) Count 11.5 thou/uL (4.8-10.8)
[2019-01-15] MEDS ORDERED: NS / Oxytocin 40 units/1000ml 1,000 ML ONE (02:43)
[2019-01-15] MEDS ORDERED: Butorphanol Tartrate 1 MG/ML VIAL SLOW IVP PRN (02:46)
[2019-01-15] MEDS ORDERED: Ondansetron PF 4 MG/2 ML Vial IVP PRN ×3 (02:46→06:33)
[2019-01-15] MEDS ORDERED: Promethazine HCl 25 MG/ML VIAL IM PRN ×2 (02:46→04:06)
[2019-01-15] MEDS ORDERED: Lidocaine 1% (PF) 30 ML VIAL SC PRN (03:00)
[2019-01-15] MEDS ORDERED: NS / Oxytocin 40 units/1000ml 1,000 ML IV SCH ×2 (03:00→06:45)
[2019-01-15] MEDS ORDERED: NS w/ Oxytocin 10 units 500 ML IV SCH (03:00)
[2019-01-15 03:20] LABS: HBSAg Index 0.28 S/CO (0-0.99); Hep B Surf Ag Non-Reactive S/CO (NonReactive)
[2019-01-15] MEDS ORDERED: Lidocaine 1% PF 5 ML VIAL ONE (03:34)
[2019-01-15 04:05] LABS: Syphilis Antibody Nonreactive (Nonreactive); Syphilis Antibody Index 0.05 S/CO (<1.00 Non-Reactive)
[2019-01-15] MEDS ORDERED: Naloxone HCl 0.4 mg/ml Vial IVP PRN ×2 (04:06)
[2019-01-15] MEDS ORDERED: Acetaminophen 325 MG TAB PO PRN (04:06)
[2019-01-15] MEDS ORDERED: diphenhydrAMINE 50 MG/ML VIAL IVP PRN (04:06)
[2019-01-15] MEDS ORDERED: ePHEDrine/0.9% NaCl/PF SYRINGE 50 mg/10 ml SLOW IVP PRN (04:06)
[2019-01-15] MEDS ORDERED: Lactated Ringer's 500 ML IV PRN (04:06)
[2019-01-15] MEDS ORDERED: Fentanyl 4 mcg/Bupivacaine 0.1% Cassette 100 ML EPIDURAL SCH (04:15)
[2019-01-15] MEDS ORDERED: Communication Order-Pharmacy FS SCH (04:15)
[2019-01-15] MEDS ORDERED: Adacel (T-DAP) 0.5 ML SYRINGE IM ONE (06:33)
[2019-01-15] MEDS ORDERED: Milk Of Magnesia 30 ML UDCUP PO PRN (06:33)
[2019-01-15] MEDS ORDERED: Lanolin Ointment 7 GM TUBE TOP PRN (06:33)
[2019-01-15] MEDS ORDERED: HYDROcodone/Acetaminophen 5/325 mg Tablet PO PRN (06:33)
[2019-01-15] MEDS ORDERED: Preparation H Ointment 28 GM TUBE PR PRN (06:33)
[2019-01-15] MEDS ORDERED: Benzocaine-Menthol 82.5 ML CAN TOP PRN (06:33)
[2019-01-15] MEDS ORDERED: Bisacodyl 10 MG SUPP PR PRN (06:33)
[2019-01-15] MEDS ORDERED: Fioricet 325/50/40 mg Tablet PO PRN (06:48)
[2019-01-15] MEDS: Ibuprofen 800 MG TAB PO SCH ×2 (06:50→21:27)
[2019-01-15] MEDS: NS w/ Oxytocin 10 units 500 ML IV SCH (10:16)
[2019-01-15] MEDS: Docusate Calcium (SURFAK) 240 MG CAP PO SCH ×2 (10:17→21:27)
[2019-01-15] MEDS: Ferrous Sulfate 325 MG TAB PO SCH ×2 (10:17→16:57)
[2019-01-15] MEDS: Prenatal Vitamin 1 TAB PO SCH (10:17)
--- NOTE | 2019-01-15 12:04 | OP ---
DATE OF PROCEDURE: 01/15/2019 PREOPERATIVE DIAGNOSES: 1. A 28-year-old G3, P2, at 39 weeks and 1 day with active labor. 2. GBS negative. 3. History of herpes simplex virus with initiation of prophylaxis at 30 weeks gestation with history of outbreaks and negative exam for lesions or symptoms. 4. Anemia of . POSTOPERATIVE DIAGNOSES: 1. A 28-year-old G3, P2, at 39 weeks and 1 day with active labor. 2. GBS negative. 3. History of herpes simplex virus with initiation of prophylaxis at 30 weeks gestation with history of outbreaks and negative exam for lesions or symptoms. 4. Anemia of . 5. Liveborn female with Apgars of 9 and 9 at 1 and 5 minutes respectively, weighing 7 pounds 4 ounces. PROCEDURE PERFORMED: Vaginal delivery. ANESTHESIA: Epidural. CLINICAL HISTORY: The patient is a 28-year-old female, G3, P2, who presented at 39 weeks and 1 day in active labor. She was checked by the nursing staff and was noted to be 6 cm, 80% effaced, -2 station, and uncomfortable. The patient was admitted and she requested an epidural for maternal analgesia. Once the epidural was placed and she was comfortable, an amniotomy was performed for clear fluid. The patient improved and continued to progress. She had a category 1 tracing and hour and a half later, she was complete and +2 station and ready to deliver. DESCRIPTION OF PROCEDURE: With good maternal effort, the patient was able to push and bring the vertex to and delivered the anterior shoulder followed by the posterior shoulder, followed by the remainder of the 's body was delivered. The infant cried spontaneously. The cord was doubly clamped and then cut by the father of the baby and placed on maternal abdomen for continued stimulation by the nursing staff. The baby cried vigorously. The placenta was then delivered spontaneously intact with a 3-vessel cord. The introitus, vagina, and cervix were checked for lacerations and noted to be intact. The uterus was massaged and noted to be below the umbilicus and firm. The patient tolerated the procedure well. There were no lacerations. She was able to recover on Labor and Delivery in satisfactory condition with her . Again, the was a liveborn female with Apgars of 9 and 9 at 1 and 5 minutes, weighing 7 pounds 4 ounces. Estimated blood loss was 25. 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 There were no other issues surrounding this delivery. All needle, sponge, lap, and instrument counts were correct x2 at the end of the procedure. Job ID: [id number]
[2019-01-15] MEDS: HYDROcodone/Acetaminophen 5/325 mg Tablet PO PRN (23:28)
[2019-01-16] MEDS: Ibuprofen 800 MG TAB PO SCH ×2 (05:43→14:15)
[2019-01-16] MEDS: NS w/ Oxytocin 10 units 500 ML IV SCH (06:31)
[2019-01-16] MEDS: Prenatal Vitamin 1 TAB PO SCH (08:44)
[2019-01-16] MEDS: Docusate Calcium (SURFAK) 240 MG CAP PO SCH (08:44)
[2019-01-16] MEDS: Ferrous Sulfate 325 MG TAB PO SCH ×2 (08:45→16:48)
[2019-01-16 09:02] VITALS: BP 110/66; TEMP 97.7
[2019-01-16] MEDS: HYDROcodone/Acetaminophen 5/325 mg Tablet PO PRN (14:14)
== END 2019-01-16 18:50 | disposition home or self-care (01) | DRG 806 ==
LOC: L&D/OP 01:47 → L&D 02:13 → 3SW 09:07
PROVIDERS: ADMIT Obstetrics & Gynecology; ATTEND Obstetrics & Gynecology
PROC: 10907ZC Drainage of Amniotic Fluid, Therapeutic from Products of Conception, Via Natural or Artificial Opening (ICD-10-PCS; principal; 2019-01-15)
PROC: 10E0XZZ Delivery of Products of Conception, External Approach (ICD-10-PCS; 2019-01-15)
DX: O99.02 Anemia complicating childbirth (principal); O98.52 Other viral diseases complicating childbirth; Z37.0 Single live birth; D64.9 Anemia, unspecified; Z3A.39 39 weeks gestation of pregnancy; B00.9 Herpesviral infection, unspecified
CPT/HCPCS: 36415; 51702; 85027; 86780; 86850; 86900; 86901; 87340; 90715; 99285; J2001; J3490

== ENCOUNTER 2019-08-13 17:23 | Emergency (ER) | payer MEDICAID, OTHER, SELFPAY ==
[2019-08-13 18:06] LABS: Bilirubin Negative (Negative); Blood, Urine Negative (Negative); Clarity Clear (Clear); Glucose, Urine (Dipstick) Normal (Negative); Leukocyte Negative Leu/uL (Negative); Nitrite Negative (Negative); Protein, Urine (Dipstick) 10 mg/dL (Neg-Trace); Urobilinogen Normal mg/dL (Less than 2)
[2019-08-13 18:15] LABS: #Basophils 0.1 thou/uL (0.0-0.2); #Eosinphils 0.1 thou/uL (0.0-0.7); #Lymphocytes 2.4 thou/uL (1.20-3.40); #Monocytes 0.7 thou/uL (0.11-0.59); #Neutrophils 8.5 thou/uL (1.40-6.50); %Basophils 0.6 % (0.0-1.0); %Eosinophils 0.5 % (0.0-10.0); %Lymphocytes 20.3 % (21.0-51.0); %Monocytes 6.2 % (0.0-10.0); %Neutrophils 72.4 % (42.0-75.0); Hemoglobin 13.2 g/dL (12.0-16.0); Mean Corpuscular HGB CONC 34.4 g/dL (32.0-36.0); Mean Corpuscular Hemoglobin 31.3 pg (27.0-31.0); Mean Corpuscular Volume 90.9 fL (78.0-98.0); Mean Platelet Volume 6.5 fL (7.4-10.4); Platelet Count 356 thou/uL (130-400); RBC Distribution Width 12.1 % (11.5-14.5); Red Blood Cell (RBC) Count 4.21 mill/uL (4.20-5.40); White Blood Cell (WBC) Count 11.7 thou/uL (4.8-10.8)
[2019-08-13 18:37] LABS: ALT (SGPT) 18 U/L (8-55); AST (SGOT) 16 U/L (5-34); Alkaline Phosphatase 49 U/L (40-110); Anion Gap 14 mmol/L (10-20); BUN (Urea Nitrogen) 7 mg/dL (7.0-18.7); Bilirubin, Total 0.9 mg/dL (0.2-1.2); Calc. Creatinine Clearance 0 mL/min (70-130); Calcium 9.2 mg/dL (7.8-10.44); Carbon Dioxide 21 mmol/L (22-29); Chloride 105 mmol/L (98-107); Estimated GFR-MDRD Greater than 90; Globulin 3.2 g/dL (2.4-3.5); Glucose 89 mg/dL (70-105); Potassium 3.5 mmol/L (3.5-5.1); Protein, Total 7.2 g/dL (6.0-8.3); Sodium 136 mmol/L (136-145)
== END 2019-08-13 20:15 | disposition home or self-care (01) ==
LOC: ERS 17:23
DX: O99.89 Other specified diseases and conditions complicating pregnancy, childbirth and the puerperium (principal); R10.9 Unspecified abdominal pain; R10.814 Left lower quadrant abdominal tenderness; R11.0 Nausea; R51 Headache; M54.9 Dorsalgia, unspecified; O99.331 Smoking (tobacco) complicating pregnancy, first trimester; F17.210 Nicotine dependence, cigarettes, uncomplicated; Z3A.12 12 weeks gestation of pregnancy
CPT/HCPCS: 36415; 80053; 81003; 84702; 85025; 86900; 86901; 99284

== ENCOUNTER 2020-02-17 19:25 | Inpatient (IN) | payer MEDICAID, OTHER ==
[2020-02-17 19:55] VITALS: BMI 37.3
[2020-02-17] MEDS ORDERED: Lidocaine 1% (PF) 30 ML VIAL ONE (20:08)
[2020-02-17] MEDS ORDERED: NS / Oxytocin 40 units/1000ml 1,000 ML ONE (20:08)
[2020-02-17] MEDS: Lactated Ringer's 1,000 ML IV SCH (20:12)
[2020-02-17] MEDS ORDERED: Docusate 100 MG CAP PO PRN (20:25)
[2020-02-17] MEDS ORDERED: Ondansetron PF 4 MG/2 ML Vial IVP PRN (20:25)
[2020-02-17] MEDS ORDERED: NS / Oxytocin 40 units/1000ml 1,000 ML IV PRN (20:25)
[2020-02-17] MEDS ORDERED: Diphenoxylate HCl/Atropine Tablet PO PRN (20:25)
[2020-02-17] MEDS ORDERED: Promethazine HCl 25 MG/ML VIAL IM PRN (20:25)
[2020-02-17] MEDS ORDERED: hydrALAZINE 20 MG/ML VIAL SLOW IVP PRN (20:25)
[2020-02-17] MEDS ORDERED: Butorphanol Tartrate 1 MG/ML VIAL SLOW IVP PRN (20:25)
[2020-02-17] MEDS ORDERED: Lidocaine 1% (PF) 30 ML VIAL SC PRN (20:25)
[2020-02-17] MEDS ORDERED: Acetaminophen 500 MG TAB PO PRN (20:25)
[2020-02-17] MEDS ORDERED: Methylergonovine 0.2 MG/ML VIAL IM PRN (20:25)
[2020-02-17] MEDS ORDERED: Carboprost 250 MCG/ML AMP IM PRN (20:25)
[2020-02-17] MEDS ORDERED: Ibuprofen 800 MG TAB PO PRN (20:25)
[2020-02-17] MEDS ORDERED: Misoprostol 200 MCG TAB PR PRN (20:25)
[2020-02-17 20:36] LABS: Hemoglobin 13.7 g/dL (12.0-16.0); Mean Corpuscular HGB CONC 33.8 g/dL (32.0-36.0); Mean Corpuscular Hemoglobin 30.8 pg (27.0-31.0); Mean Corpuscular Volume 91.2 fL (78.0-98.0); Mean Platelet Volume 6.7 fL (7.4-10.4); Platelet Count 352 thou/uL (130-400); RBC Distribution Width 14.2 % (11.5-14.5); Red Blood Cell (RBC) Count 4.44 mill/uL (4.20-5.40); White Blood Cell (WBC) Count 10.4 thou/uL (4.8-10.8)
[2020-02-17] MEDS ORDERED: Milk Of Magnesia 30 ML UDCUP PO PRN (20:53)
[2020-02-17] MEDS ORDERED: Bisacodyl 10 MG SUPP PR PRN (20:53)
[2020-02-17] MEDS ORDERED: Lanolin Ointment 7 GM TUBE TOP PRN (20:53)
[2020-02-17] MEDS ORDERED: Preparation H Ointment 28 GM TUBE PR PRN (20:53)
[2020-02-17] MEDS ORDERED: NS / Oxytocin 40 units/1000ml 1,000 ML IV SCH (21:00)
--- NOTE | 2020-02-17 21:15 | PDOC.FPROB ---
FMR OB H&P: HPI - History of Present Illness Chief Complaint: Contractions Indentification: History of Present Illness: Ms. Oro reports that she began feeling contractions early this morning. She decided to labor at home to rule out false labor. After the contractions continued to persist into the evening, she decided to come in. She denies LOF, vaginal bleeding, vaginal discharge, dysuria, fever, cough. Reports contractions , endorses movement. Primary Care Physician: Dr. Catie Isabel FMR OB H&P: Current - Care : 4 Para: 3 Gestational age: 37.5 Due date: 03/10/2020 Dating Criteria: LMP c/w 15.3 sono Course/Complications: GDM on insulin. Pt just recently started on insulin. A1C 5.2 on 02/10 - OB Labs Blood type: A RH: positive Antibody Screen: negative HIV: negative RPR: negative HepBsAg: negative Rubella: immune Gonorrhea: negative Chlamydia: negative Pap Smear: 12/2019 NILM A1c: 5.2 GBS: negative H&H: 11.5/33.7 on 01/06/2020 Platelets: 337 FMR OB H&P: History - Past Medical History PMH: GDM - OB History OB History: 1. Full term [id number] female 2. Full term [id number] 3. 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 No tobacco, alcohol, drugs - Family History Family History: Father - HTN Mother - healthy Maternal grand mother - cancer Paternal grandmother - cancer Paternal Aunt - cancer FMR OB H&P: Medications - Current Home Medications: Medication Instructions Recorded Confirmed Type Vit37/Iron/Folic Acid 1 tab PO DAILY 01/15/19 01/15/19 History [Prenata Chewable Tablet] valACYclovir HCl [valACYclovir] 500 mg PO TID 01/15/19 01/15/19 History HumaLOG [HumaLOG Vial] 10 ml SQ 02/17/20 History Allergies/Adverse Reactions: Allergies Allergy/AdvReac Type Severity Reaction Status Date / Time No Known Allergies Allergy Verified 07/16/20 19:52 FMR OB H&P: ROS - Review of Systems General: denies: fever/chills Eyes: denies: vision changes ENT: denies: nasal congestion, sore throat Cardiovascular: denies: chest pain Respiratory: denies: cough, shortness of breath Gastrointestinal: reports: abdominal pain Genitourinary (Female): denies: incontinence, dysuria, vaginal discharge, vaginal bleeding Musculoskeletal: denies: pain Neurologic: denies: syncope, seizures Integumentary: denies: rash Psychological: denies: depression, anxiety FMR OB H&P: Vital Signs - Maternal Vital signs: Vital Signs - First Documented Temp Pulse Resp BP 98.1 F 94 18 121/68 02/17/20 19:50 02/17/20 19:50 02/17/20 19:50 02/17/20 19:50 - Heart Tones Baseline: 150 Variability: moderate Acceleration: present Category: category 1 [place] contractions every: 2-3 FMR OB H&P: Physical Exam - Physical Exam General: NAD, awake, alert and oriented HEENT: normocephalic and atraumatic, grossly normal vision, grossly normal hearing Neck: supple Heart: no edema General: CTAB, no respiratory distress Abdomen: gravid Musculoskeletal: FROM in all four extremities Neurological: cranial nerves II through XII intact Skin: no rash Lymphatic: no unusual bruising or bleeding Psychiatric: normal mood and affect - Pelvic Exam Vulva: normal hair distribution, appropriate caryn stage, no masses, no lesions , no discharge, no blood, normal rugae FMR OB H&P: Results - Labs Lab results: Laboratory Results - last 24 hr 02/17/20 02/17/20 20:20 20:20 WBC 10.4 RBC 4.44 Hgb 13.7 Hct 40.5 MCV 91.2 MCH 30.8 MCHC 33.8 RDW 14.2 Plt Count 352 MPV 6.7 L Blood Type A POSITIVE Antibody Screen NEGATIVE FMR OB H&P: A/P Discussion: Date/Time: 02/17/202111 29yo at 36.5 who presents to L&D for contractions. Term sIUP -GBS negative -SVE on arrival at 1999 was 9/100/-1, intact -admit for labor -no epidural A2GDM -recently started on insulin -well controlled, A1C of 5.2 on 7/10 This H&P was discussed with Dr. Jurado and Dr. Moore who agree with the above documentation and plan. Addendum - Attending - Attending Attestation Date/Time: 02/18/20 0706 I personally evaluated the patient and discussed the management with Dr. Infante I agree with the History, Examination, Assessment and Plan documented above with any addition or exceptions noted below - 29 yo @36.5 weeks presented in advanced active labor. PNC complicated by A2GDM, recently started on insulin and h/o HSV on acyclovir (last outbreak November 2018; no prodromal symptoms or lesions seen. Denies LOF, VB. (+) FM Cat 1 FHTs. SVE 9/C/0. Admit to L&D. See delivery note for further details.
[2020-02-17 21:18] LABS: Syphilis Antibody Nonreactive (Nonreactive); Syphilis Antibody Index 0.04 S/CO (<1.00 Non-Reactive)
[2020-02-17 21:22] LABS: Glucose 100 mg/dL (70-105)
--- NOTE | 2020-02-17 21:57 | PDOC.OPDEL ---
OB Operative/Delivery Note Delivery Dr/Surgeon: Katherine/Teresa Pre-Delivery Diagnosis: active labor Procedure/Post Delivery Dx: spontaneous vaginal delivery Weeks gestation: 37 (37.5) Anesthesia: none - Additional Findings/Plan Placenta delivered: spontaneous Repaired Obstetrical Laceration: none Estimated blood loss: 100 Compilations/Other Findings: Delivering Physician: Katherine Attending: Teresa Procedure: Spontaneous Vaginal Delivery Anesthesia: none QBL: 100 ml Pre-op Diagnosis: 1. Term intrauterine in labor 2. A2GDM Post-op Diagnosis: 1. Term intrauterine , delivered 2. same as above Indications: A 29y/o female presents in active labor Delivery Note: This is 29yo F @ 37.5 wks who delivered a viable F infant at 2039. Following an uneventful antepartum course, a vigorous female was delivered over an intact perineum in the occipitoanterior position. Anterior Shoulder and then remainder of the body delivered. No nuchal cord. The head was held down and mouth and nares were bulb suctioned. Cord clamped after delayed cord clamping and cut and cord blood collected. Placenta delivered intact in the [place] with a 3 vessel cord noted. Fundal massage was performed and the fundus was firm. The cervix and vagina were inspected and found to be free of lacerations. went to nursery in good condition for routine care. Apgars were 9/9 at 1 & 5 minutes, respectively. Patient tolerated delivery well and went to after routine recovery/care. Post delivery plan: routine recovery Addendum - Attending - Attending Attestation Date/Time: 02/18/20 0713 I was present and supervised the of a viable female infant over an intact perineum to this 29 yo @36.5 weeks on 02/17/2020 @2040. Shoulders and body delivered easily. Placenta delivered spontaneously and intact. 3V cord. No epis or lacerations. QBL 100mL. and mother in stable condition. Residents : Katherine.
[2020-02-17] MEDS ORDERED: HYDROcodone/Acetaminophen 5/325 mg Tablet PO SCH (22:45)
[2020-02-17 22:50] LABS: HBSAg Index 0.08 S/CO (0-0.99); Hep B Surf Ag Non-Reactive S/CO (NonReactive)
[2020-02-17] MEDS: Docusate Calcium (SURFAK) 240 MG CAP PO SCH (23:34)
[2020-02-18] MEDS: Lactated Ringer's 1,000 ML IV SCH ×2 (03:25→11:13)
[2020-02-18] MEDS: Ibuprofen 800 MG TAB PO SCH ×3 (06:10→20:19)
--- NOTE | 2020-02-18 07:07 | PDOC.PP ---
Post Progress Note Post Day #: 1 Subjective: Patient feeling well this morning, no complaints. Says she is a "little sore" from delivery. Pad changed once, was about 1/3 to 1/2 full with no clots. Has been to bathroom twice, no issues noted. Able to tolerate late dinner. Expresses desire to go home today if possible. PO intake tolerated: yes Flatus: yes Ambulation: yes Vital Signs (12 hours) Temp Pulse Resp BP BP Pulse Ox 02/18/20 05:51 98.0 F 79 16 98/58 L 98 02/18/20 01:21 98.4 F 72 16 113/62 98 02/18/20 00:17 98.1 F 75 16 110/56 L 97 02/17/20 23:09 98.6 F 83 16 111/60 97 02/17/20 19:50 98.1 F 94 18 121/68 Weight Weight 86.636 kg - Physical Examination General: NAD Cardiovascular: no m/r/g, RRR Respiratory: clear to auscultation bilaterally, non-labored breathing Abdominal: + bowel sounds, no distention, appropriately TTP Fundus firm & at: level of umbilicus Extremities: negative homans (B) Skin: no rash Neurological: no gross focal deficits Psychiatric: A&Ox3, normal affect Result Diagrams: 02/17/20 20:20 02/17/20 20:20 Additional Labs: Post Labs Blood Type A POSITIVE 02/17/20 20:20 Hep Bs Antigen Non-Reactive S/CO (NonReactive) 02/17/20 20:20 - Assessment/Plan 29yo at 37.5 weeks who presents to L&D for contractions has delivered via @ 2039 on 02/17/2020. Term SIUP -GBS negative -SVE on arrival at 1999 was 9/100/-1, intact -delivery via @ 2039 on 02/17/2020, no lacerations or complications A2GDM -recently started on insulin: Lantus 25 u AM, Humalin 10 u WM -well controlled, A1C of 5.2 on 02/10 -Accuchecks ACHS, mild SSI HSV -currently on Valtrex, will continue -no active lesions Diet: Regular VTE: none Code status: FULL Dispo: Stable, admitted to unit. Patient recovering well. Anticipate discharge in next 24-48 hours.
[2020-02-18] MEDS: Ferrous Sulfate 325 MG TAB PO SCH ×2 (08:17→16:42)
[2020-02-18] MEDS ORDERED: Prenatal Vitamin 1 TAB PO SCH (09:00)
[2020-02-18] MEDS: Docusate Calcium (SURFAK) 240 MG CAP PO SCH ×2 (09:24→20:19)
[2020-02-18 21:48] VITALS: BP 110/68; TEMP 98.3
== END 2020-02-18 22:40 | disposition home or self-care (01) | DRG 806 ==
LOC: L&D/OP 19:25 → L&D 21:07 → 3SW 23:04
PROVIDERS: ADMIT Family Medicine; ATTEND Family Medicine
PROC: 10E0XZZ Delivery of Products of Conception, External Approach (ICD-10-PCS; principal; 2020-02-17)
DX: O24.424 Gestational diabetes mellitus in childbirth, insulin controlled (principal); O98.52 Other viral diseases complicating childbirth; Z37.0 Single live birth; B00.1 Herpesviral vesicular dermatitis; Z3A.37 37 weeks gestation of pregnancy
CPT/HCPCS: 36416; 82947; 85027; 86780; 86850; 86900; 86901; 87340; J2001

== ENCOUNTER 2020-09-11 07:43 | Outpatient (CLI) | payer OTHER ==
--- NOTE | 2020-09-11 08:13 | ULT ---
EXAM: Abdominal ultrasound PROVIDED CLINICAL HISTORY: Right upper quadrant pain COMPARISON: None FINDINGS: Visualized portions of the pancreas, IVC and aorta appear normal. Liver demonstrates no mass or intrahepatic biliary ductal dilatation. The hepatic parenchyma appears echogenic, compatible with fatty infiltration. Common duct is nondilated. The gallbladder is not visualized, compatible with the provided clinical history of prior cholecystec marielle. Kidneys demonstrate no hydronephrosis or solid mass. Spleen is not enlarged and demonstrates no focal abnormality. IMPRESSION: Fatty infiltration of the liver.
== END 2020-09-11 07:44 | disposition home or self-care (01) ==
LOC: BICULT 07:43
PROVIDERS: ATTEND Internal Medicine
DX: R10.11 Right upper quadrant pain (principal); R11.2 Nausea with vomiting, unspecified; K76.0 Fatty (change of) liver, not elsewhere classified
CPT/HCPCS: 93975

== ENCOUNTER 2021-04-13 21:25 | Emergency (ER) | payer OTHER ==
[2021-04-13] MEDS ORDERED: Lidocaine 1% w/Epinephrine 1:100K 20 ML VIAL ONE (22:38)
[2021-04-13] MEDS ORDERED: Bupivacaine 0.5% 10 ML VIAL ONE (22:38)
== END 2021-04-13 23:02 | disposition home or self-care (01) ==
LOC: ERS 21:25
DX: K02.9 Dental caries, unspecified (principal); F17.210 Nicotine dependence, cigarettes, uncomplicated
CPT/HCPCS: 64400; J3490

== ENCOUNTER 2022-01-03 07:44 | Outpatient (CLI) | payer OTHER | END 2022-01-03 07:45 | disposition home or self-care (01) | LOC: BICULT 07:44 | PROVIDERS: ATTEND Obstetrics & Gynecology | DX: N93.9 Abnormal uterine and vaginal bleeding, unspecified (principal) | CPT/HCPCS: 76856; 93976 ==

== ENCOUNTER 2022-01-25 08:47 | Outpatient (CLI) | payer OTHER ==
[2022-01-25] MEDS ORDERED: Iopamidol-370 76% 500 ML 1 ML ONE (11:58)
== END 2022-01-25 08:48 | disposition home or self-care (01) ==
LOC: BICCT 08:47
PROVIDERS: ATTEND Physician Assistant Medical
DX: R11.2 Nausea with vomiting, unspecified (principal); R68.81 Early satiety; R14.0 Abdominal distension (gaseous); R19.7 Diarrhea, unspecified; R63.4 Abnormal weight loss; I86.8 Varicose veins of other specified sites
CPT/HCPCS: 74177

== ENCOUNTER 2022-07-17 07:43 | Outpatient (CLI) | payer OTHER | END 2022-07-17 07:44 | disposition home or self-care (01) | LOC: NM 07:43 | PROVIDERS: ATTEND Physician Assistant Medical | DX: R10.9 Unspecified abdominal pain (principal); R68.81 Early satiety; R19.8 Other specified symptoms and signs involving the digestive system and abdomen | CPT/HCPCS: 78264; A9541 ==

== ENCOUNTER 2023-03-28 22:27 | Emergency (ER) | payer OTHER ==
[2023-03-29 00:48] LABS: Pregnancy Test - Urine (BHCG) Negative (Negative); Pregu Control Background? CLEAR/WHITE (CLR/WHITE); Pregu Control Bar Appear? YES (CONTROL BAR)
[2023-03-29 00:50] LABS: Bilirubin Negative (Negative); Blood, Urine 3+ (Negative); CAUTI Indications for Culture Dysuria,urgency,freq; Clarity Clear (Clear); Glucose, Urine (Dipstick) Normal (Negative); Ketone, Urine Negative (Negative); Leukocyte Negative Leu/uL (Negative); Nitrite Negative (Negative); Protein, Urine (Dipstick) Negative (Neg-Trace); RBC/HPF Greater than 50 HPF (0-3); Specific Gravity, Urine 1.007 (1.002-1.036); Squamous Epithelial None Seen HPF (0-3); Urobilinogen Normal mg/dL (Less than 2)
[2023-03-29 00:52] LABS: Bacteria/HPF Rare-Few HPF (None Seen); Specific Gravity 1.007 (1.002-1.036)
[2023-03-29 00:53] LABS: Urine Culture Reflex No No
[2023-03-29 01:23] LABS: #Eosinphils 0.1 thou/uL (0.0-0.7); #Monocytes 0.8 thou/uL (0.11-0.59); #Neutrophils 9.4 thou/uL (1.40-6.50); %Basophils 0.2 % (0.0-1.0); %Eosinophils 0.7 % (0.0-10.0); %Lymphocytes 22.9 % (21.0-51.0); %Monocytes 6.3 % (0.0-10.0); %Neutrophils 69.6 % (42.0-75.0); Hematocrit 35.5 % (36.0-47.0); Hemoglobin 11.6 g/dL (12.0-16.0); Mean Corpuscular HGB CONC 32.7 g/dL (32.0-36.0); Mean Corpuscular Hemoglobin 32.1 pg (27.0-31.0); Mean Corpuscular Volume 98.3 fl (78.0-98.0); Mean Platelet Volume 9.2 fL (7.4-10.4); Platelet Count 264 10x3/uL (130-400); RBC Distribution Width 13.9 % (11.5-14.5); Red Blood Cell (RBC) Count 3.61 mill/uL (4.20-5.40); White Blood Cell (WBC) Count 13.4 10x3/uL (4.8-10.8)
[2023-03-29] MEDS ORDERED: Ketorolac Tromethamine 30 MG/ML VIAL ONE (01:35)
[2023-03-29 01:44] LABS: ALT (SGPT) Less than 7 U/L (8-55); AST (SGOT) 11 U/L (5-34); Albumin 3.7 g/dL (3.5-5.0); Alkaline Phosphatase 35 U/L (40-110); Anion Gap 12 mmol/L (10-20); BUN (Urea Nitrogen) 5 mg/dL (7.0-18.7); Bilirubin, Total 0.5 mg/dL (0.2-1.2); Calc. Creatinine Clearance 0 mL/min (70-130); Calcium 8.5 mg/dL (7.8-10.44); Carbon Dioxide 24 mmol/L (22-29); Chloride 105 mmol/L (98-107); Estimated GFR 110; Globulin 2.8 g/dL (2.4-3.5); Glucose 100 mg/dL (70-105); Potassium 3.7 mmol/L (3.5-5.1); Protein, Total 6.5 g/dL (6.0-8.3); Sodium 137 mmol/L (136-145)
[2023-03-29] MEDS ORDERED: Iopamidol 370 76% 100 ML VIAL ONE (09:19)
[2023-03-30 00:47] LABS: Chlam.trachomatis by PCR,Urine Not Detected (NotDetected); GC N.gonorrhoeae PCR,UrineVOID Not Detected (NotDetected)
== END 2023-03-29 04:55 | disposition home or self-care (01) ==
LOC: ERS 22:27
DX: R30.0 Dysuria (principal); F17.210 Nicotine dependence, cigarettes, uncomplicated
CPT/HCPCS: 36415; 74177; 80053; 81001; 81025; 85025; 87086; 87491; 87591; 96374; J1885; Q9967